=== PATIENT | female | born 1945 | race Caucasian/White ===

== ENCOUNTER 2016-09-24 13:34 | Outpatient (CLI) | payer MEDICARE | END 2016-09-24 13:35 | disposition home or self-care (01) | DX: Z12.31 Encounter for screening mammogram for malignant neoplasm of breast (principal) ==

== ENCOUNTER 2023-11-14 09:35 | Outpatient (CLI) | payer MEDICARE | END 2023-11-14 23:59 | disposition short-term general hospital (02) | LOC: EMS 09:35 | DX: M54.2 Cervicalgia (principal); M43.6 Torticollis; R10.32 Left lower quadrant pain | CPT/HCPCS: A0425; A0429; A0888 ==

== ENCOUNTER 2024-02-16 16:53 | Outpatient (CLI) | payer MEDICARE | END 2024-02-16 23:59 | disposition EMS.NT | LOC: EMS 16:53 | DX: Z03.89 Encounter for observation for other suspected diseases and conditions ruled out (principal) ==